=== PATIENT | male | born 1975 | race Caucasian/White ===

== ENCOUNTER 2023-03-24 08:01 | Emergency (ER) | payer OTHER ==
[2023-03-24 08:15] VITALS: BMI 28.1
[2023-03-24] MEDS ORDERED: morphine CARPU-JECT 4 MG/1 ML DISP.SYRIN IVPUSH ONE ×2 (08:35→10:32)
[2023-03-24] MEDS ORDERED: morphine SULFATE 4 MG/ML VIAL ONE ×2 (08:42→10:46)
[2023-03-24 09:14] LABS: BASO % 0.7 % (0-2.0); EOS % 0.5 % (0-4.5); HEMATOCRIT 36.2 % (35.4-49); HEMOGLOBIN 12.9 GM/dL (11.7-16.9); LYMPH % 14.2 % (8-40); MCH 30.7 pg (25.7-33.7); MCHC 35.6 g/dl (32.0-35.9); MEAN CELL VOLUME 86.3 fl (80-96); MEAN PLT VOLUME 7.7 fl (7.5-11.1); MONO % 5.8 % (3.8-10.2); NEUT % 78.8 % (42.8-82.8); PLATELET COUNT 304 10^3/uL (134-434); RBC 4.19 M/mm3 (4.00-5.60); RDW 13.2 % (11.9-15.9); WHITE BLOOD COUNT 10.8 K/mm3 (4.0-10.0)
[2023-03-24 09:21] LABS: PROTHROMBIN TIME (PATIENT) 11.6 SEC (9.7-13.0)
[2023-03-24 09:23] LABS: ACTIVATED PTT 35.7 SECONDS (25.2-36.5)
[2023-03-24 09:39] LABS: EPI CELLS >36 /uL (0-25.1); HYALINE CASTS 0 /uL (0-3.1); PH,URINE 7.5 (5.0-8.0); URINE APPEARANCE CLEAR; URINE BACTERIA 34 /uL (0-1359); URINE BILIRUBIN NEGATIVE (NEGATIVE); URINE COLOR YELLOW; URINE GLUCOSE (UA) NEGATIVE (NEGATIVE); URINE KETONE NEGATIVE (NEGATIVE); URINE LEUK ESTERASE 2+ (NEGATIVE); URINE NITRITE NEGATIVE (NEGATIVE); URINE PROTEIN NEGATIVE (NEGATIVE); URINE RBC 1 /uL (0-23.9); URINE UROBILINOGEN 0.2 mg/dL (0.2-1.0); URINE WBC 29 /uL (0-25.8)
[2023-03-24 09:45] LABS: CALCIUM 9.5 mg/dL (8.5-10.1)
[2023-03-24 09:46] LABS: ALBUMIN 3.8 g/dl (3.4-5.0); BLOOD UREA NITROGEN 10.6 mg/dL (7-18)
[2023-03-24 09:49] LABS: BILIRUBIN,TOTAL 0.4 mg/dL (0.2-1); CREATININE 0.9 mg/dL (0.55-1.3); TOT PROT 7.5 g/dl (6.4-8.2)
[2023-03-24 14:47] VITALS: RESP 20; TEMP 97.2
[2023-03-24 15:28] VITALS: BP 169/101; PULSE 61
== END 2023-03-24 15:50 | disposition home or self-care (01) ==
LOC: JER 08:01
PROC: 3E033GC Introduction of Other Therapeutic Substance into Peripheral Vein, Percutaneous Approach (ICD-10-PCS; principal; 2023-03-24)
PROC: 3E033GC Introduction of Other Therapeutic Substance into Peripheral Vein, Percutaneous Approach (ICD-10-PCS; 2023-03-24)
PROC: 3E033NZ Introduction of Analgesics, Hypnotics, Sedatives into Peripheral Vein, Percutaneous Approach (ICD-10-PCS; 2023-03-24)
DX: R10.9 Unspecified abdominal pain (principal); N50.89 Other specified disorders of the male genital organs; N50.811 Right testicular pain; N45.1 Epididymitis; Z20.822 Contact with and (suspected) exposure to COVID-19
CPT/HCPCS: 0241U-QW; 36415; 74176-TC; 76870-TC; 80053; 81003; 85025; 85610; 85730; 86850; 86900; 86901; 87086; 87491; 87591; 99285-25

== ENCOUNTER 2023-08-30 18:19 | Emergency (ER) | payer OTHER ==
[2023-08-30 18:24] VITALS: BP 141/76; PULSE 82; RESP 18; TEMP 98.7; BMI 27.8
[2023-08-30] MEDS ORDERED: ACETAMINOPHEN 1000 MG/100 ML BAG IVPB ONE (19:13)
[2023-08-30] MEDS ORDERED: ACETAMINOPHEN INJECTION 100 ML IVPB ONE (19:21)
[2023-08-30 20:23] LABS: BASO % 0.8 % (0-2.0); EOS % 1.2 % (0-4.5); HEMATOCRIT 42.3 % (35.4-49); HEMOGLOBIN 14.2 GM/dL (11.7-16.9); LYMPH % 23.7 % (8-40); MCH 29.5 pg (25.7-33.7); MCHC 33.7 g/dl (32.0-35.9); MEAN CELL VOLUME 87.5 fl (80-96); MEAN PLT VOLUME 7.2 fl (7.5-11.1); MONO % 8.4 % (3.8-10.2); NEUT % 65.9 % (42.8-82.8); PLATELET COUNT 291 10^3/uL (134-434); RBC 4.83 M/mm3 (4.00-5.60); RDW 14.2 % (11.9-15.9); WHITE BLOOD COUNT 11.8 K/mm3 (4.0-10.0)
[2023-08-30 20:32] LABS: INR 1.09 (0.83-1.09); PROTHROMBIN TIME (PATIENT) 12.6 SEC (9.7-13.0)
[2023-08-30 20:47] LABS: POTASSIUM 4.5 mmol/L (3.5-5.1)
[2023-08-30 20:50] LABS: CALCIUM 9.4 mg/dL (8.5-10.1)
[2023-08-30 20:51] LABS: ALBUMIN 4.2 g/dl (3.4-5.0)
[2023-08-30 20:54] LABS: CREATININE 1.1 mg/dL (0.55-1.3)
[2023-08-30 20:56] LABS: BILIRUBIN,TOTAL 0.9 mg/dL (0.2-1); TOT PROT 7.9 g/dl (6.4-8.2)
== END 2023-08-30 22:52 | disposition home or self-care (01) ==
LOC: JER 18:19
PROC: 3E033NZ Introduction of Analgesics, Hypnotics, Sedatives into Peripheral Vein, Percutaneous Approach (ICD-10-PCS; principal; 2023-08-30)
DX: R10.31 Right lower quadrant pain (principal); N50.811 Right testicular pain; K40.20 Bilateral inguinal hernia, without obstruction or gangrene, not specified as recurrent; Z20.822 Contact with and (suspected) exposure to COVID-19
CPT/HCPCS: 0241U-QW; 36415; 74176-TC; 76870-TC; 80053; 85025; 85610; 85730; 86850; 86900; 86901; 99285-25

== ENCOUNTER 2024-02-10 04:23 | Day surgery (SDC) | payer OTHER ==
[2024-02-07 09:05] VITALS: BMI 27.8
[2024-02-10 08:24] VITALS: TEMP 98
[2024-02-10 09:04] VITALS: BP 111/62; PULSE 66; RESP 16
== END 2024-02-10 09:04 | disposition home or self-care (01) ==
LOC: JASU-ENDO 04:23
PROVIDERS: ATTEND Internal Medicine Gastroenterology
PROC: 0DBK8ZX Excision of Ascending Colon, Via Natural or Artificial Opening Endoscopic, Diagnostic (ICD-10-PCS; principal; 2024-02-10 08:00)
DX: Z12.11 Encounter for screening for malignant neoplasm of colon (principal); D12.2 Benign neoplasm of ascending colon; K64.8 Other hemorrhoids
CPT/HCPCS: 88305-TC

== ENCOUNTER 2025-05-03 16:21 | Observation (INO) | payer OTHER ==
[2025-05-03 18:04] LABS: INR 1.02 (0.83-1.09); PROTHROMBIN TIME (PATIENT) 11.1 SEC (9.7-13.0)
[2025-05-03 18:07] LABS: ABSOLUTE IMMATURE GRANULOCYTES 0.04 x10^3/uL (0.0-0.031); ACTIVATED PTT 30.0 SECONDS (25.2-36.5); BASOPHILS # 0.05 x10^3/uL (0.01-0.08); EOSINOPHIL % 1.6 % (0.8-7.0); EOSINOPHILS # 0.15 x10^3/uL (0.04-0.54); IMMATURE PLATELET FRACTION # 3.40 x10^3/uL; MCHC 31.9 g/dl (32.3-36.5); MEAN CELL VOLUME 87.7 fl (79.0-92.2); MEAN PLT VOLUME 9.3 fl (9.4-12.4); MONOCYTE # 0.62 x10^3/uL (0.30-0.82); MONOCYTE % 6.7 % (5.3-12.2); RDW 13.1 % (12.1-15.9)
[2025-05-03 18:16] LABS: CO2 29.0 mmol/L (21-32)
[2025-05-03 18:19] LABS: CREATININE 1.5 mg/dL (0.55-1.3)
[2025-05-03 18:20] LABS: SGOT/AST 32.0 U/L (15-37); SGPT/ALT 37.0 U/L (13-61)
[2025-05-03 18:21] LABS: TOT PROT 6.8 g/dl (6.4-8.2)
[2025-05-03 18:22] LABS: ALK PHOS 66.0 U/L (45-117)
[2025-05-03 18:24] LABS: N-TERMINAL BNP 48.0 pg/ml (5-125)
[2025-05-03 18:25] LABS: URINE APPEARANCE CLEAR; URINE BILIRUBIN NEGATIVE (NEGATIVE); URINE COLOR YELLOW; URINE GLUCOSE (UA) NEGATIVE (NEGATIVE); URINE KETONE TRACE (NEGATIVE); URINE LEUK ESTERASE NEGATIVE (NEGATIVE); URINE NITRITE NEGATIVE (NEGATIVE); URINE PROTEIN NEGATIVE (NEGATIVE); URINE UROBILINOGEN 0.2 mg/dL (0.2-1.0)
[2025-05-03 18:29] LABS: GLUCOSE,RANDOM 106.0 mg/dL (74-106)
[2025-05-04 02:56] VITALS: BMI 32.2
[2025-05-04 07:07] LABS: ABSOLUTE IMMATURE GRANULOCYTES 0.03 x10^3/uL (0.0-0.031); BASOPHILS # 0.06 x10^3/uL (0.01-0.08); EOSINOPHIL % 2.8 % (0.8-7.0); EOSINOPHILS # 0.26 x10^3/uL (0.04-0.54); MCHC 31.3 g/dl (32.3-36.5); MEAN CELL VOLUME 87.9 fl (79.0-92.2); MEAN PLT VOLUME 9.7 fl (9.4-12.4); MONOCYTE # 0.85 x10^3/uL (0.30-0.82); MONOCYTE % 9.2 % (5.3-12.2); RDW 13.1 % (12.1-15.9)
[2025-05-04 07:27] LABS: CO2 27.0 mmol/L (21-32); GLUCOSE,RANDOM 102.0 mg/dL (74-106)
[2025-05-04 07:31] LABS: CREATININE 1.2 mg/dL (0.55-1.3)
[2025-05-04] MEDS: amLODIPine BESYLATE 5 MG TABLET (FP) PO SCH (09:44)
[2025-05-04] MEDS: FUROSEMIDE 40 MG/4 ML INJECTABLE VIAL IVPUSH ONE (10:11)
[2025-05-04 12:44] LABS: HCV DIAGNOSTIC IN-HOUSE W/RFLX NON-REACTIVE (NONREACTIVE)
[2025-05-04] MEDS: VALSARTAN 80 MG TABLET PO ONE (18:24)
[2025-05-04 19:08] LABS: HIV INTERPRETATION NEGATIVE (NEGATIVE)
[2025-05-04] MEDS: ATORVASTATIN CA 20 MG TABLET (FP) PO SCH (22:24)
[2025-05-05] MEDS: VALSARTAN 80 MG TABLET PO SCH (10:29)
[2025-05-05 14:20] VITALS: BP 131/107; PULSE 87; RESP 19; TEMP 98.6
== END 2025-05-05 14:34 | disposition home or self-care (01) ==
LOC: JER 16:21 → JERBED 17:24 → J4W 05-04 02:42
PROVIDERS: ADMIT Family Medicine; ATTEND Family Medicine
PROC: 3E033GC Introduction of Other Therapeutic Substance into Peripheral Vein, Percutaneous Approach (ICD-10-PCS; principal; 2025-05-03)
DX: I50.30 Unspecified diastolic (congestive) heart failure (principal); E78.5 Hyperlipidemia, unspecified; E66.811 Obesity, class 1; N17.9 Acute kidney failure, unspecified; R60.0 Localized edema; R06.00 Dyspnea, unspecified; R06.09 Other forms of dyspnea
CPT/HCPCS: 36415; 71045-TC-FY; 71250-TC; 76705-TC; 76775-TC; 80048; 80053; 81003; 83735; 83880; 84484; 85025; 85610; 85730; 86803; 87086; 87389; 93005; 93010; 93306-TC; 93970-TC; 96374; 99285-25; G0378